=== PATIENT | female | born 1950 | race Caucasian/White ===

== ENCOUNTER 2022-02-07 08:23 | Inpatient (IN) | payer MEDICARE, MEDICAID ==
[~2022-02-07] VITALS: Ht 160 cm; Wt 61.7 kg
[2022-02-07] MEDS ORDERED: SODIUM CHLORIDE 0.9% 100 ML ONE (08:35)
[2022-02-07] MEDS ORDERED: IOHEXOL 350 MG/ML 100 ML VIAL ONE (08:35)
[2022-02-07 08:44] LABS: BASOPHILS % (AUTO) 0.6 % (0.0-2.0); EOSINOPHILS % (AUTO) 0.7 % (1.0-6.0); HEMATOCRIT 38.9 % (36-46); LYMPHOCYTES # (AUTO) 1.6 K/uL (1.0-4.8); LYMPHOCYTES % (AUTO) 15.2 % (22.0-44.0); MEAN CORPUSCULAR HGB CONC 33.5 G/dL (31.0-37.0); MEAN CORPUSCULAR VOLUME 87 fL (80-100); MONOCYTES # (AUTO) 0.5 K/uL (0.1-1.0); MONOCYTES % (AUTO) 4.7 % (2.0-9.0); NEUTROPHILS # (AUTO) 8.1 K/uL (1.8-7.7); NEUTROPHILS % (AUTO) 78.8 % (40.0-70.0); PLATELET COUNT (AUTO) 277 K/uL (150-450); RED BLOOD CELL COUNT(AUTO) 4.48 MIL/uL (4.00-5.20); RED CELL DISTRIBUTION WIDTH 13.3 % (11.5-14.5)
[2022-02-07 08:56] LABS: CALCIUM, TOTAL 8.8 mg/dL (8.8-10.5); CREATININE 1.19 mg/dL (0.60-1.30); POTASSIUM 3.4 mmol/L (3.5-5.1)
[2022-02-07 09:06] LABS: PROTHROMBIN TIME 11.1 SEC (9.4-11.6)
[2022-02-07 09:10] LABS: ALBUMIN 3.9 g/dL (3.4-5.0); BILIRUBIN,TOTAL 0.5 mg/dL (0.1-1.0); THYROID STIMULATING HORMONE 7.34 uIU/mL (0.36-3.74); TOTAL PROTEIN, SERUM 7.3 g/dL (6.4-8.2)
[2022-02-07] MEDS ORDERED: NALOXONE HCL 1 MG/ML 2 ML SYRINGE ONE (09:54)
[2022-02-07] MEDS: NiCARDipine HCL 25 MG in DEXTROSE 5%-WATER 240 ML IV PRN ×2 (09:56→09:57)
[2022-02-07 10:00] LABS: APPEARANCE,URINE CLEAR (CLEAR); BILIRUBIN,URINE NEGATIVE (NEGATIVE); GLUCOSE, URINE (UA) NEGATIVE (NEGATIVE); KETONES,URINE NEGATIVE (NEGATIVE); LEUKOCYTE ESTERASE ,URINE NEGATIVE (NEGATIVE); NITRATE,URINE NEGATIVE (NEGATIVE); OCCULT BLOOD,URINE NEGATIVE (NEGATIVE); PH,URINE 6.5 (5.0-8.0); PROTEIN,URINE NEGATIVE (NEGATIVE); SPECIFIC GRAVITIY, URINE 1.024 (1.003-1.030); UROBILINOGEN,URINE <=1.0 mg/dL (<=1.0)
[2022-02-07] MEDS ORDERED: NALOXONE HCL 1 MG/ML 2 ML SYRINGE IVP ONE (10:00)
[2022-02-07 10:11] LABS: AMPHET/METH SCREEN,URINE NEGATIVE (NEGATIVE); BARBITURATE SCREEN, URINE NEGATIVE (NEGATIVE); BENZODIAZEPINES SCREEN,URINE NEGATIVE (NEGATIVE); CANNABINOID SCREEN,URINE POSITIVE (NEGATIVE); COCAINE SCREEN,URINE NEGATIVE (NEGATIVE); METHADONE SCREEN, URINE NEGATIVE (NEGATIVE); OPIATE SCREEN,URINE NEGATIVE (NEGATIVE)
[2022-02-07 10:13] LABS: PHENCYCLIDINE SCREEN,URINE NEGATIVE (NEGATIVE)
[2022-02-07 10:38] LABS: BACTERIA,URINE None Seen /HPF (None Seen); RBC,URINE None Seen /HPF (0-2); SQUAMOUS EPITHELIAL CELL,UR Few /LPF (None Seen); WBC,URINE None Seen /HPF (0-5)
[2022-02-07] MEDS ORDERED: VITA400C79 PO (11:01)
[2022-02-07] MEDS ORDERED: METO-558 PO (11:01)
[2022-02-07] MEDS ORDERED: QUET300T2 PO (11:01)
[2022-02-07] MEDS ORDERED: LOSA-382 PO (11:01)
[2022-02-07] MEDS ORDERED: OMEG-108 PO (11:01)
[2022-02-07] MEDS ORDERED: BUSP15 PO (11:01)
[2022-02-07] MEDS ORDERED: GABA-1181 PO ×2 (11:01)
[2022-02-07] MEDS ORDERED: BECL10.62 IH (11:01)
[2022-02-07] MEDS ORDERED: TRAZ-257 PO (11:01)
[2022-02-07] MEDS ORDERED: ATOR40TA28 PO (11:01)
[2022-02-07] MEDS ORDERED: ALBU8HFA IH (11:01)
[2022-02-07] MEDS ORDERED: FLUT16H NASAL (11:01)
[2022-02-07] MEDS ORDERED: ONDA-104 PO (11:01)
[2022-02-07] MEDS ORDERED: HYDR-4527 PO (11:01)
[2022-02-07] MEDS ORDERED: BACL10TA PO (11:01)
[2022-02-07] MEDS ORDERED: SERT-158 PO (11:01)
[2022-02-07] MEDS ORDERED: CHOL500013 PO (11:01)
[2022-02-07] MEDS ORDERED: NiCARDipine HCL 25 MG in DEXTROSE 5%-WATER 240 ML IV PRN (11:09)
[2022-02-07] MEDS: ASPIRIN 81 MG CHEWABLE TABLET PO ONE ×2 (11:14→12:04)
[2022-02-07] MEDS ORDERED: IPRATROPIUM BROMIDE 0.5 MG/2.5 ML NEB SOLUTION NEB PRN (11:30)
[2022-02-07] MEDS ORDERED: 0.9% SODIUM CHLORIDE 10 ML SYRINGE IVP PRN (11:30)
[2022-02-07] MEDS ORDERED: BISACODYL 10 MG RECTAL RECTAL SUPPOSITORY PR PRN (11:30)
[2022-02-07] MEDS ORDERED: ONDANSETRON HCL 4 MG/2 ML VIAL IVP PRN (11:30)
[2022-02-07] MEDS ORDERED: ALBUTEROL SULFATE 2.5 MG/0.5 ML NEB SOLUTION NEB PRN (11:30)
[2022-02-07] MEDS: SODIUM CHLORIDE 0.9% 1,000 ML IV SCH (11:54)
[2022-02-07] MEDS: PANTOPRAZOLE SODIUM 40 MG/VIAL IVP SCH (12:04)
[2022-02-07 12:09] LABS: FREE T4 (FREE THYROXINE) 0.66 ng/dL (0.76-1.46)
[2022-02-07 12:48] LABS: ABG BASE EXCESS 2.8 mmol/L (-2.0-3.0); ABG CARBOXYHEMOGLOBIN 1.6 % (0.0-1.5); ABG METHEMOGLOBIN 0.3 % (0.0-1.5); ABG OXYGEN CONTENT 18.7 mL/dL (15.0-23.0); ABG OXYGEN SATURATION 95.7 % (95.0-98.0); ABG OXYHEMOGLOBIN 93.9 % (94.0-100.0); ABG PCO2 52 mmHg (35-45); ABG PH 7.356 (7.35-7.450); ABG TOTAL HEMOGLOBIN 14.1 G/dL (12.0-18.0); PO2, ARTERIAL BG 83.3 mmHg (75.0-83.0); SOURCE, BLOOD GAS ARTERIAL; TEMPERATURE, FAHRENHEIT, BG 97.7 FAHREN (96.0-98.6)
[2022-02-07 12:50] LABS: O2 DEVICE,BLOOD GAS CANNULA (ROOM AIR); SITE, BLOOD GAS RT RADIAL
[2022-02-07] MEDS: BECLOMETHASONE DIPR HFA 80 MCG/PUFF 10.6 GM INHALER IH SCH (20:09)
[2022-02-07 20:53] VITALS: BP 148/54
[2022-02-07] MEDS: ZOLPIDEM TARTRATE 5 MG TABLET PO PRN (22:45)
[2022-02-07] MEDS: HydrALAZINE HCL 20 MG/ML VIAL IVP PRN (23:44)
[2022-02-08 00:03] VITALS: BP 171/80
[2022-02-08] MEDS: ACETAMINOPHEN 325 MG TABLET PO PRN ×2 (01:15→16:39)
[2022-02-08 04:34] VITALS: BP 155/79
[2022-02-08] MEDS: SODIUM CHLORIDE 0.9% 1,000 ML IV SCH ×2 (04:52→16:06)
[2022-02-08 08:20] LABS: BASOPHILS % (AUTO) 0.5 % (0.0-2.0); EOSINOPHILS % (AUTO) 1.7 % (1.0-6.0); HEMATOCRIT 38.6 % (36-46); HEMOGLOBIN 12.9 g/dL (12.0-16.0); LYMPHOCYTES # (AUTO) 2.2 K/uL (1.0-4.8); MEAN CORPUSCULAR HGB CONC 33.4 G/dL (31.0-37.0); MEAN CORPUSCULAR VOLUME 87 fL (80-100); MONOCYTES # (AUTO) 0.6 K/uL (0.1-1.0); MONOCYTES % (AUTO) 6.7 % (2.0-9.0); NEUTROPHILS # (AUTO) 5.3 K/uL (1.8-7.7); NEUTROPHILS % (AUTO) 64.1 % (40.0-70.0); PLATELET COUNT (AUTO) 263 K/uL (150-450); RED BLOOD CELL COUNT(AUTO) 4.44 MIL/uL (4.00-5.20); RED CELL DISTRIBUTION WIDTH 13.5 % (11.5-14.5)
[2022-02-08 08:47] LABS: ALANINE AMINOTRANSFERASE 19 U/L (12-78); ALBUMIN 3.3 g/dL (3.4-5.0); ALKALINE PHOSPHATASE 88 U/L (46-116); ANION GAP 7 mmol/L (8-16); ASPARTATE AMINOTRANSFERASE 18 U/L (15-37); BILIRUBIN,TOTAL 0.5 mg/dL (0.1-1.0); CALCIUM, TOTAL 8.3 mg/dL (8.8-10.5); CARBON DIOXIDE 29 mmol/L (22-29); CHLORIDE 101 mmol/L (98-107); CHOL/HDL RATIO 2.4 (3.9-5.7); CHOLESTEROL 158 mg/dL (131-200); CREATININE 0.77 mg/dL (0.60-1.30); GLUCOSE,RANDOM 87 mg/dL (70-110); HDL CHOLESTEROL 66 mg/dL (40-60); LDL CHOL (CALC.) 71 mg/dL (0-130); POTASSIUM 3.2 mmol/L (3.5-5.1); SODIUM SERUM 137 mmol/L (136-145); TOTAL PROTEIN, SERUM 6.7 g/dL (6.4-8.2); TRIGLYCERIDES 103 mg/dL (15-150); UREA NITROGEN, BLOOD 12 mg/dL (7-18)
[2022-02-08 08:48] LABS: GLOMERULAR FILTR. RATE CALC > 60 mL/min (>60)
[2022-02-08 08:53] VITALS: BP 163/93
[2022-02-08] MEDS ORDERED: METOPROLOL SUCCINATE 50 MG ER TABLET PO SCH (09:00)
[2022-02-08] MEDS ORDERED: LEVOTHYROXINE SODIUM 100 MCG VIAL IVP SCH (09:00)
[2022-02-08] MEDS: LOSARTAN POTASSIUM 50 MG TABLET PO SCH (09:00)
[2022-02-08] MEDS: ASPIRIN 300 MG RECTAL SUPPOSITORY PR SCH (09:01)
[2022-02-08] MEDS: PANTOPRAZOLE SODIUM 40 MG/VIAL IVP SCH (09:01)
[2022-02-08] MEDS: FLUTICASONE PROPIONATE 50 MCG/SPRAY 16 GM NASAL SPRAY NASAL SCH (13:53)
[2022-02-08] MEDS: BECLOMETHASONE DIPR HFA 80 MCG/PUFF 10.6 GM INHALER IH SCH ×2 (13:53→21:40)
[2022-02-08] MEDS: AmLODIPine BESYLATE 10 MG TABLET PO SCH (13:53)
[2022-02-08 14:05] VITALS: BP 178/99
[2022-02-08] MEDS: IPRATROPIUM BROMIDE 0.5 MG/2.5 ML NEB SOLUTION NEB SCH ×2 (15:10→20:28)
[2022-02-08] MEDS: ALBUTEROL SULFATE 2.5 MG/0.5 ML NEB SOLUTION NEB SCH ×2 (15:10→20:28)
[2022-02-08] MEDS: HydrALAZINE HCL 20 MG/ML VIAL IVP PRN (16:40)
[2022-02-08 20:00] VITALS: BP 176/85
[2022-02-08] MEDS: ZOLPIDEM TARTRATE 5 MG TABLET PO PRN (21:40)
[2022-02-08] MEDS: CloNIDine HCL 0.1 MG TABLET PO PRN (21:40)
[2022-02-09] VITALS (7 sets, daily range): BP systolic 129–172; BP diastolic 71–98
[2022-02-09] MEDS: ALBUTEROL SULFATE 2.5 MG/0.5 ML NEB SOLUTION NEB SCH ×4 (02:00→19:55)
[2022-02-09] MEDS: IPRATROPIUM BROMIDE 0.5 MG/2.5 ML NEB SOLUTION NEB SCH ×4 (02:00→19:55)
[2022-02-09] MEDS: SODIUM CHLORIDE 0.9% 1,000 ML IV SCH (06:46)
[2022-02-09] MEDS: LEVOTHYROXINE SODIUM 25 MCG TABLET PO SCH (06:46)
[2022-02-09 07:47] LABS: BASOPHILS % (AUTO) 0.4 % (0.0-2.0); EOSINOPHILS % (AUTO) 0.4 % (1.0-6.0); HEMATOCRIT 41.1 % (36-46); HEMOGLOBIN 13.8 g/dL (12.0-16.0); LYMPHOCYTES # (AUTO) 1.9 K/uL (1.0-4.8); LYMPHOCYTES % (AUTO) 15.4 % (22.0-44.0); MEAN CORPUSCULAR HGB CONC 33.6 G/dL (31.0-37.0); MEAN CORPUSCULAR VOLUME 86 fL (80-100); MONOCYTES # (AUTO) 0.7 K/uL (0.1-1.0); MONOCYTES % (AUTO) 5.5 % (2.0-9.0); NEUTROPHILS # (AUTO) 9.9 K/uL (1.8-7.7); NEUTROPHILS % (AUTO) 78.3 % (40.0-70.0); PLATELET COUNT (AUTO) 288 K/uL (150-450); RED BLOOD CELL COUNT(AUTO) 4.76 MIL/uL (4.00-5.20); RED CELL DISTRIBUTION WIDTH 13.5 % (11.5-14.5)
[2022-02-09 08:05] LABS: ALANINE AMINOTRANSFERASE 19 U/L (12-78); ALBUMIN 3.5 g/dL (3.4-5.0); ALKALINE PHOSPHATASE 95 U/L (46-116); ANION GAP 7 mmol/L (8-16); ASPARTATE AMINOTRANSFERASE 19 U/L (15-37); BILIRUBIN,TOTAL 0.5 mg/dL (0.1-1.0); CALCIUM, TOTAL 8.9 mg/dL (8.8-10.5); CARBON DIOXIDE 30 mmol/L (22-29); CHLORIDE 98 mmol/L (98-107); CREATININE 0.74 mg/dL (0.60-1.30); GLUCOSE,RANDOM 93 mg/dL (70-110); POTASSIUM 3.4 mmol/L (3.5-5.1); SODIUM SERUM 135 mmol/L (136-145); TOTAL PROTEIN, SERUM 7.2 g/dL (6.4-8.2); UREA NITROGEN, BLOOD 12 mg/dL (7-18)
[2022-02-09 08:08] LABS: GLOMERULAR FILTR. RATE CALC > 60 mL/min (>60)
[2022-02-09] MEDS: LOSARTAN POTASSIUM 50 MG TABLET PO SCH (08:43)
[2022-02-09] MEDS: ASPIRIN 300 MG RECTAL SUPPOSITORY PR SCH (08:43)
[2022-02-09] MEDS: AmLODIPine BESYLATE 10 MG TABLET PO SCH (08:43)
[2022-02-09] MEDS: METOPROLOL SUCCINATE 50 MG ER TABLET PO SCH (08:43)
[2022-02-09] MEDS: BECLOMETHASONE DIPR HFA 80 MCG/PUFF 10.6 GM INHALER IH SCH ×2 (08:44→19:57)
[2022-02-09] MEDS: PANTOPRAZOLE SODIUM 40 MG/VIAL IVP SCH (08:44)
[2022-02-09] MEDS: FLUTICASONE PROPIONATE 50 MCG/SPRAY 16 GM NASAL SPRAY NASAL SCH (08:44)
[2022-02-09] MEDS: HydrALAZINE HCL 20 MG/ML VIAL IVP PRN (15:26)
[2022-02-09 15:58] LABS: APPEARANCE,URINE CLEAR (CLEAR); BILIRUBIN,URINE NEGATIVE (NEGATIVE); GLUCOSE, URINE (UA) NEGATIVE (NEGATIVE); KETONES,URINE TRACE mg/dL (NEGATIVE); LEUKOCYTE ESTERASE ,URINE NEGATIVE (NEGATIVE); NITRATE,URINE NEGATIVE (NEGATIVE); OCCULT BLOOD,URINE TRACE (NEGATIVE); PH,URINE 6.5 (5.0-8.0); PROTEIN,URINE 30-70 mg/dL (NEGATIVE); SPECIFIC GRAVITIY, URINE 1.017 (1.003-1.030); UROBILINOGEN,URINE <=1.0 mg/dL (<=1.0)
[2022-02-09 16:06] LABS: BACTERIA,URINE Rare /HPF (None Seen); SQUAMOUS EPITHELIAL CELL,UR Few /LPF (None Seen); WBC,URINE 0-2 /HPF (0-5)
[2022-02-10] VITALS (8 sets, daily range): BP systolic 146–184; BP diastolic 74–100
[2022-02-10] MEDS: ALBUTEROL SULFATE 2.5 MG/0.5 ML NEB SOLUTION NEB SCH ×4 (02:00→19:32)
[2022-02-10] MEDS: IPRATROPIUM BROMIDE 0.5 MG/2.5 ML NEB SOLUTION NEB SCH ×4 (02:00→19:32)
[2022-02-10] MEDS: LEVOTHYROXINE SODIUM 25 MCG TABLET PO SCH (05:51)
[2022-02-10] MEDS: SODIUM CHLORIDE 0.9% 1,000 ML IV SCH ×2 (05:51→11:20)
[2022-02-10] MEDS: CloNIDine HCL 0.1 MG TABLET PO PRN (05:52)
[2022-02-10 06:21] LABS: EOSINOPHILS % (AUTO) 0.5 % (1.0-6.0); HEMATOCRIT 40.7 % (36-46); HEMOGLOBIN 13.6 g/dL (12.0-16.0); LYMPHOCYTES # (AUTO) 1.8 K/uL (1.0-4.8); LYMPHOCYTES % (AUTO) 17.3 % (22.0-44.0); MEAN CORPUSCULAR HEMOGLOBIN 28.9 pg (26.0-34.0); MEAN CORPUSCULAR HGB CONC 33.4 G/dL (31.0-37.0); MEAN CORPUSCULAR VOLUME 87 fL (80-100); MONOCYTES # (AUTO) 0.6 K/uL (0.1-1.0); MONOCYTES % (AUTO) 6.1 % (2.0-9.0); NEUTROPHILS # (AUTO) 7.7 K/uL (1.8-7.7); NEUTROPHILS % (AUTO) 75.1 % (40.0-70.0); PLATELET COUNT (AUTO) 282 K/uL (150-450); RED CELL DISTRIBUTION WIDTH 13.5 % (11.5-14.5)
[2022-02-10 06:43] LABS: ALANINE AMINOTRANSFERASE 23 U/L (12-78); ALBUMIN 3.7 g/dL (3.4-5.0); ALKALINE PHOSPHATASE 95 U/L (46-116); ANION GAP 8 mmol/L (8-16); ASPARTATE AMINOTRANSFERASE 24 U/L (15-37); BILIRUBIN,TOTAL 0.4 mg/dL (0.1-1.0); CALCIUM, TOTAL 8.5 mg/dL (8.8-10.5); CARBON DIOXIDE 30 mmol/L (22-29); CHLORIDE 99 mmol/L (98-107); CREATININE 0.68 mg/dL (0.60-1.30); GLUCOSE,RANDOM 118 mg/dL (70-110); POTASSIUM 3.4 mmol/L (3.5-5.1); SODIUM SERUM 137 mmol/L (136-145); TOTAL PROTEIN, SERUM 7.4 g/dL (6.4-8.2); UREA NITROGEN, BLOOD 13 mg/dL (7-18)
[2022-02-10 06:47] LABS: GLOMERULAR FILTR. RATE CALC > 60 mL/min (>60)
[2022-02-10] MEDS ORDERED: POTASSIUM CHLORIDE 20 MEQ ER TABLET PO ONE (08:15)
[2022-02-10] MEDS ORDERED: HydrALAZINE HCL 50 MG TABLET PO SCH (08:15)
[2022-02-10] MEDS: ASPIRIN 81 MG DR TABLET PO SCH (08:41)
[2022-02-10] MEDS: PANTOPRAZOLE SODIUM 40 MG/VIAL IVP SCH (08:41)
[2022-02-10] MEDS: AmLODIPine BESYLATE 10 MG TABLET PO SCH (08:41)
[2022-02-10] MEDS: METOPROLOL SUCCINATE 50 MG ER TABLET PO SCH (08:41)
[2022-02-10] MEDS: LOSARTAN POTASSIUM 50 MG TABLET PO SCH (08:41)
[2022-02-10] MEDS: BECLOMETHASONE DIPR HFA 80 MCG/PUFF 10.6 GM INHALER IH SCH ×2 (08:43→20:13)
[2022-02-10] MEDS: FLUTICASONE PROPIONATE 50 MCG/SPRAY 16 GM NASAL SPRAY NASAL SCH (08:43)
[2022-02-10] MEDS ORDERED: HydrALAZINE HCL 50 MG TABLET PO ONE (11:15)
[2022-02-10] MEDS ORDERED: NIFEdipine 30 MG ER TABLET PO ONE (12:15)
[2022-02-10] MEDS: NICOTINE 14 MG/24 HOUR PATCH TD SCH (13:26)
[2022-02-10] MEDS: ACETAMINOPHEN 325 MG TABLET PO PRN (13:28)
[2022-02-10] MEDS: HydrALAZINE HCL 50 MG TABLET PO SCH ×2 (16:51→23:45)
[2022-02-10] MEDS: NIFEdipine 30 MG ER TABLET PO SCH (20:13)
[2022-02-10] MEDS: ZOLPIDEM TARTRATE 5 MG TABLET PO PRN (20:18)
[2022-02-11 00:05] VITALS: BP 144/92
[2022-02-11] MEDS: ALBUTEROL SULFATE 2.5 MG/0.5 ML NEB SOLUTION NEB SCH ×4 (02:00→13:39)
[2022-02-11] MEDS: IPRATROPIUM BROMIDE 0.5 MG/2.5 ML NEB SOLUTION NEB SCH ×4 (02:00→13:39)
[2022-02-11 05:09] VITALS: BP 139/89
[2022-02-11] MEDS: LEVOTHYROXINE SODIUM 25 MCG TABLET PO SCH (05:26)
[2022-02-11] MEDS: SODIUM CHLORIDE 0.9% 1,000 ML IV SCH ×2 (05:27→15:36)
[2022-02-11 07:38] VITALS: BP 144/80
[2022-02-11] MEDS: BECLOMETHASONE DIPR HFA 80 MCG/PUFF 10.6 GM INHALER IH SCH (09:44)
[2022-02-11] MEDS: FLUTICASONE PROPIONATE 50 MCG/SPRAY 16 GM NASAL SPRAY NASAL SCH (09:46)
[2022-02-11] MEDS: PANTOPRAZOLE SODIUM 40 MG/VIAL IVP SCH (09:46)
[2022-02-11] MEDS: HydrALAZINE HCL 50 MG TABLET PO SCH ×2 (09:47→15:24)
[2022-02-11] MEDS: NICOTINE 14 MG/24 HOUR PATCH TD SCH (09:47)
[2022-02-11] MEDS: LOSARTAN POTASSIUM 50 MG TABLET PO SCH (09:48)
[2022-02-11] MEDS: METOPROLOL SUCCINATE 50 MG ER TABLET PO SCH (09:48)
[2022-02-11] MEDS: NIFEdipine 30 MG ER TABLET PO SCH (09:48)
[2022-02-11] MEDS: ASPIRIN 81 MG DR TABLET PO SCH (09:49)
[2022-02-11] MEDS: ACETAMINOPHEN 325 MG TABLET PO PRN (09:55)
[2022-02-11 11:13] VITALS: BP 155/75
[2022-02-11] MEDS ORDERED: POLY17PO47 PO (15:27)
[2022-02-11] MEDS ORDERED: ASPI-1450 PO (15:27)
[2022-02-11] MEDS ORDERED: HYDR50TA36 PO (15:28)
[2022-02-11] MEDS ORDERED: LOSA-382 PO (15:29)
[2022-02-11] MEDS ORDERED: METO-558 PO (15:29)
[2022-02-11] MEDS ORDERED: NIFE-46 PO (15:32)
[2022-02-11 15:57] VITALS: BP 145/91
== END 2022-02-11 17:40 | disposition home or self-care (01) | DRG 92 ==
LOC: EMS 08:26 → 5N 19:21
PROVIDERS: ADMIT Internal Medicine; ATTEND Internal Medicine
DX: G92.8 Other toxic encephalopathy (principal); R65.10 Systemic inflammatory response syndrome (SIRS) of non-infectious origin without acute organ dysfunction; I45.2 Bifascicular block; I16.1 Hypertensive emergency; E03.9 Hypothyroidism, unspecified; I11.9 Hypertensive heart disease without heart failure; F99 Mental disorder, not otherwise specified; J43.9 Emphysema, unspecified; F12.90 Cannabis use, unspecified, uncomplicated; G25.0 Essential tremor; R00.1 Bradycardia, unspecified; G62.9 Polyneuropathy, unspecified; R47.81 Slurred speech; E87.6 Hypokalemia; Z88.2 Allergy status to sulfonamides; Z79.899 Other long term (current) drug therapy
CPT/HCPCS: 36600; 51702; 70496; 70498; 70551; 71045; 71046; 80053; 80061; 81001; 82140; 82805; 82948; 83036; 83605; 83880; 84145; 84439; 84443; 84484; 85025; 85610; 85730; 86850; 86900; 86901; 87040; 92610; 93005; 93306; 93880; 94640; 97116; 97161; 97166; 97530; 97535; 99291; C9113; G0480; J0360; J2310; J3490; J3535; J7030; J7050; J7060; Q9967; 36415-L1; 36415-TC; 70450; 70450-TC; J7613

== ENCOUNTER 2022-02-16 02:38 | Inpatient (IN) | payer MEDICARE, MEDICAID ==
[~2022-02-16] VITALS: Ht 160 cm; Wt 63.5 kg
[~2022-02-16 02:38] MED LIST: ALBU8HFA IH; ASPI-1450 PO; ATOR40TA28 PO; BACL10TA PO; BECL10.62 IH; BUSP15 PO; CHOL500013 PO; FLUT16H NASAL; GABA-1181 PO; HYDR-4527 PO; HYDR50TA36 PO; LOSA-382 PO; METO-558 PO; NIFE-46 PO; OMEG-108 PO; ONDA-104 PO; POLY17PO47 PO; SERT-158 PO; VITA400C79 PO
[2022-02-16] MEDS ORDERED: SODIUM CHLORIDE 0.9% 500 ML IV ONE (03:15)
[2022-02-16 03:16] LABS: GLUCOMETER DEV NAME(LOC) ERT.5; GLUCOSE,POINT OF CARE 137 MG/DL (70-110)
[2022-02-16 03:16] LABS: BASOPHILS % (AUTO) 0.7 % (0.0-2.0); EOSINOPHILS % (AUTO) 1.9 % (1.0-6.0); HEMATOCRIT 38.4 % (36-46); HEMOGLOBIN 12.8 g/dL (12.0-16.0); LYMPHOCYTES # (AUTO) 2.2 K/uL (1.0-4.8); LYMPHOCYTES % (AUTO) 23.1 % (22.0-44.0); MEAN CORPUSCULAR HEMOGLOBIN 28.9 pg (26.0-34.0); MEAN CORPUSCULAR HGB CONC 33.4 G/dL (31.0-37.0); MEAN CORPUSCULAR VOLUME 87 fL (80-100); MONOCYTES # (AUTO) 0.5 K/uL (0.1-1.0); MONOCYTES % (AUTO) 5.5 % (2.0-9.0); NEUTROPHILS # (AUTO) 6.5 K/uL (1.8-7.7); NEUTROPHILS % (AUTO) 68.8 % (40.0-70.0); PLATELET COUNT (AUTO) 298 K/uL (150-450); RED BLOOD CELL COUNT(AUTO) 4.44 MIL/uL (4.00-5.20)
[2022-02-16 03:36] LABS: AMMONIA < 10 umol/L (11-32); LACTIC ACID 0.6 mmol/L (0.4-2.0)
[2022-02-16 03:42] LABS: PROTHROMBIN TIME 10.9 SEC (9.4-11.6)
[2022-02-16 03:55] LABS: CALCIUM, TOTAL 8.8 mg/dL (8.8-10.5); CREATININE 0.99 mg/dL (0.60-1.30); POTASSIUM 3.3 mmol/L (3.5-5.1)
[2022-02-16 04:00] LABS: APPEARANCE,URINE CLEAR (CLEAR); BILIRUBIN,URINE NEGATIVE (NEGATIVE); GLUCOSE, URINE (UA) NEGATIVE (NEGATIVE); KETONES,URINE NEGATIVE (NEGATIVE); LEUKOCYTE ESTERASE ,URINE NEGATIVE (NEGATIVE); NITRATE,URINE NEGATIVE (NEGATIVE); OCCULT BLOOD,URINE NEGATIVE (NEGATIVE); PROTEIN,URINE NEGATIVE (NEGATIVE); SPECIFIC GRAVITIY, URINE 1.008 (1.003-1.030); UROBILINOGEN,URINE <=1.0 mg/dL (<=1.0)
[2022-02-16 04:05] LABS: AMPHET/METH SCREEN,URINE NEGATIVE (NEGATIVE); BARBITURATE SCREEN, URINE NEGATIVE (NEGATIVE); BENZODIAZEPINES SCREEN,URINE NEGATIVE (NEGATIVE); CANNABINOID SCREEN,URINE POSITIVE (NEGATIVE); COCAINE SCREEN,URINE NEGATIVE (NEGATIVE); METHADONE SCREEN, URINE NEGATIVE (NEGATIVE); OPIATE SCREEN,URINE NEGATIVE (NEGATIVE)
[2022-02-16 04:06] LABS: PHENCYCLIDINE SCREEN,URINE NEGATIVE (NEGATIVE)
[2022-02-16 04:19] LABS: ALBUMIN 3.5 g/dL (3.4-5.0); BILIRUBIN,TOTAL 0.3 mg/dL (0.1-1.0); TOTAL PROTEIN, SERUM 6.7 g/dL (6.4-8.2)
[2022-02-16 06:29] LABS: COVID AG,FIA SOURCE NASAL SWAB
[2022-02-16] MEDS ORDERED: POTASSIUM CHL 10 MEQ/WATER 50 ML IV PRN (08:30)
[2022-02-16] MEDS ORDERED: ACETAMINOPHEN 325 MG TABLET PO PRN (08:30)
[2022-02-16] MEDS ORDERED: POTASSIUM CHLORIDE 20 MEQ ER TABLET PO PRN (08:30)
[2022-02-16] MEDS: FAMOTIDINE 20 MG TABLET PO SCH (09:00)
[2022-02-16] MEDS: DOCUSATE SODIUM 100 MG CAPSULE PO SCH ×2 (09:00→20:10)
[2022-02-16] MEDS: ATORVASTATIN CALCIUM 20 MG TABLET PO SCH (09:00)
[2022-02-16] MEDS: ASPIRIN 81 MG CHEWABLE TABLET PO SCH (09:00)
[2022-02-16] MEDS: HEPARIN SODIUM,PORCINE 5,000 UNITS/ML VIAL SQ SCH ×2 (16:06→23:38)
[2022-02-16] MEDS ORDERED: ASPI-1444 PO (18:26)
[2022-02-16] MEDS ORDERED: QUET300T19 PO (18:26)
[2022-02-16] MEDS ORDERED: HYDR-4584 PO (18:26)
[2022-02-16] MEDS ORDERED: FISH1 PO (18:26)
[2022-02-16] MEDS ORDERED: LEVO125T95 PO (18:26)
[2022-02-16] MEDS ORDERED: NIFE30TA5 PO (18:26)
[2022-02-16] MEDS ORDERED: NICOTINE 14 MG/24 HOUR PATCH TD ONE (18:30)
[2022-02-16 21:11] VITALS: BP 151/96
[2022-02-16] MEDS ORDERED: ASPIRIN 81 MG CHEWABLE TABLET PO ONE (21:45)
[2022-02-16] MEDS: ZOLPIDEM TARTRATE 5 MG TABLET PO PRN (21:45)
[2022-02-16] MEDS ORDERED: MORPHINE SULFATE 2 MG/ML SYRINGE IVP PRN (22:45)
[2022-02-16 23:30] VITALS: BP 159/92
[2022-02-17] VITALS (7 sets, daily range): BP systolic 110–173; BP diastolic 45–92
[2022-02-17] MEDS: FAMOTIDINE 20 MG TABLET PO SCH (08:23)
[2022-02-17] MEDS: ASPIRIN 81 MG CHEWABLE TABLET PO SCH (08:23)
[2022-02-17] MEDS: DOCUSATE SODIUM 100 MG CAPSULE PO SCH ×2 (08:23→20:17)
[2022-02-17] MEDS: ATORVASTATIN CALCIUM 20 MG TABLET PO SCH (08:23)
[2022-02-17] MEDS: HEPARIN SODIUM,PORCINE 5,000 UNITS/ML VIAL SQ SCH ×3 (08:23→23:38)
[2022-02-17] MEDS: ONDANSETRON HCL 4 MG/2 ML VIAL IM PRN (08:30)
[2022-02-17] MEDS ORDERED: BISACODYL 5 MG EC TABLET PO PRN (09:00)
[2022-02-17] MEDS ORDERED: AmLODIPine BESYLATE 5 MG TABLET PO SCH (09:00)
[2022-02-17] MEDS ORDERED: HydrOXYzine PAMOATE 25 MG CAPSULE PO PRN (14:00)
[2022-02-17] MEDS: GABAPENTIN 100 MG CAPSULE PO SCH ×2 (16:04→20:17)
[2022-02-17] MEDS ORDERED: CloNIDine HCL 0.1 MG TABLET PO PRN (20:15)
[2022-02-17] MEDS ORDERED: MAGNESIUM HYDROXIDE SUSPENSION 30 ML UDCUP PO PRN (20:15)
[2022-02-17] MEDS ORDERED: BISACODYL 10 MG RECTAL RECTAL SUPPOSITORY PR PRN (20:15)
[2022-02-17] MEDS: ZOLPIDEM TARTRATE 5 MG TABLET PO PRN (20:27)
[2022-02-17] MEDS ORDERED: LURASIDONE HCL 20 MG TABLET PO SCH (21:00)
[2022-02-18 04:42] VITALS: BP 142/97
[2022-02-18] MEDS ORDERED: LEVOTHYROXINE SODIUM 100 MCG TABLET PO SCH (06:30)
[2022-02-18 07:17] VITALS: BP 119/70
[2022-02-18] MEDS ORDERED: AmLODIPine BESYLATE 10 MG TABLET PO SCH (09:00)
[2022-02-18] MEDS: ASPIRIN 81 MG CHEWABLE TABLET PO SCH (09:16)
[2022-02-18] MEDS: DOCUSATE SODIUM 100 MG CAPSULE PO SCH (09:17)
[2022-02-18] MEDS: FAMOTIDINE 20 MG TABLET PO SCH (09:17)
[2022-02-18] MEDS: HEPARIN SODIUM,PORCINE 5,000 UNITS/ML VIAL SQ SCH (09:17)
[2022-02-18] MEDS: ATORVASTATIN CALCIUM 20 MG TABLET PO SCH (09:17)
[2022-02-18] MEDS: GABAPENTIN 100 MG CAPSULE PO SCH (09:17)
[2022-02-18 11:00] VITALS: BP 117/76
[2022-02-18] MEDS: ONDANSETRON HCL 4 MG/2 ML VIAL IM PRN (12:36)
[2022-02-18 16:16] VITALS: BP 136/87
== END 2022-02-18 17:30 | disposition home or self-care (01) | DRG 71 ==
LOC: EMS 02:41 → 5S 19:43
PROVIDERS: ADMIT Internal Medicine; ATTEND Internal Medicine
DX: G93.40 Encephalopathy, unspecified (principal); F33.3 Major depressive disorder, recurrent, severe with psychotic symptoms; Z20.822 Contact with and (suspected) exposure to COVID-19; E03.9 Hypothyroidism, unspecified; E78.00 Pure hypercholesterolemia, unspecified; R47.81 Slurred speech; E87.6 Hypokalemia; F12.90 Cannabis use, unspecified, uncomplicated; R00.1 Bradycardia, unspecified; T50.915A Adverse effect of multiple unspecified drugs, medicaments and biological substances, initial encounter; I11.9 Hypertensive heart disease without heart failure; J44.9 Chronic obstructive pulmonary disease, unspecified; Z79.899 Other long term (current) drug therapy; Z88.2 Allergy status to sulfonamides; Z79.82 Long term (current) use of aspirin; Y92.89 Other specified places as the place of occurrence of the external cause
CPT/HCPCS: 51702; 70450; 71045; 80053; 81003; 82140; 82550; 82962; 83605; 84132; 84484; 85025; 85610; 85730; 87081; 93005; 97161; 99285; J1644; J2405; J7040; Q9967; 36415-L1; 36415-TC

== ENCOUNTER 2022-08-07 16:04 | Emergency (ER) | payer MEDICARE, MEDICAID ==
[~2022-08-07] VITALS: Ht 149.9 cm; Wt 65.0 kg
[~2022-08-07 16:04] MED LIST changes: +ASPI-1444 PO; -ASPI-1450 PO; -BACL10TA PO; -BECL10.62 IH; -BUSP15 PO; -FLUT16H NASAL; -HYDR-4527 PO; -HYDR50TA36 PO; +LEVO125T95 PO; -METO-558 PO; -NIFE-46 PO; -OMEG-108 PO; -ONDA-104 PO; -POLY17PO47 PO; -SERT-158 PO; -VITA400C79 PO
[2022-08-07 16:26] LABS: BASOPHILS % (AUTO) 0.6 % (0.0-2.0); EOSINOPHILS % (AUTO) 1.2 % (1.0-6.0); HEMATOCRIT 43.2 % (36-46); HEMOGLOBIN 14.6 g/dL (12.0-16.0); LYMPHOCYTES # (AUTO) 2.4 K/uL (1.0-4.8); LYMPHOCYTES % (AUTO) 26.6 % (22.0-44.0); MEAN CORPUSCULAR HEMOGLOBIN 29.8 pg (26.0-34.0); MEAN CORPUSCULAR HGB CONC 33.8 G/dL (31.0-37.0); MEAN CORPUSCULAR VOLUME 88 fL (80-100); MONOCYTES # (AUTO) 0.6 K/uL (0.1-1.0); MONOCYTES % (AUTO) 6.4 % (2.0-9.0); NEUTROPHILS # (AUTO) 5.9 K/uL (1.8-7.7); NEUTROPHILS % (AUTO) 65.2 % (40.0-70.0); PLATELET COUNT (AUTO) 262 K/uL (150-450); RED CELL DISTRIBUTION WIDTH 14.5 % (11.5-14.5)
[2022-08-07 16:30] LABS: COVID AG,FIA SOURCE NASOPHARYNGEAL
[2022-08-07 16:36] LABS: CALCIUM, TOTAL 9.2 mg/dL (8.8-10.5); CREATININE 1.04 mg/dL (0.60-1.30); POTASSIUM 3.3 mmol/L (3.5-5.1)
[2022-08-07] MEDS ORDERED: FAMOTIDINE 10 MG/ML 2 ML VIAL IVP ONE (16:45)
[2022-08-07 16:50] LABS: ALBUMIN 3.9 g/dL (3.4-5.0); BILIRUBIN,TOTAL 0.5 mg/dL (0.1-1.0); THYROID STIMULATING HORMONE 6.45 uIU/mL (0.36-3.74); TOTAL PROTEIN, SERUM 7.1 g/dL (6.4-8.2)
[2022-08-07] MEDS ORDERED: ONDANSETRON HCL 4 MG/2 ML VIAL IVP ONE (17:00)
[2022-08-07 17:04] LABS: APPEARANCE,URINE CLEAR (CLEAR); BILIRUBIN,URINE NEGATIVE (NEGATIVE); GLUCOSE, URINE (UA) NEGATIVE (NEGATIVE); LEUKOCYTE ESTERASE ,URINE MODERATE (NEGATIVE); NITRATE,URINE NEGATIVE (NEGATIVE); OCCULT BLOOD,URINE NEGATIVE (NEGATIVE); PH,URINE 6.5 (5.0-8.0); PROTEIN,URINE NEGATIVE (NEGATIVE); UROBILINOGEN,URINE <=1.0 mg/dL (<=1.0)
[2022-08-07 17:30] LABS: SQUAMOUS EPITHELIAL CELL,UR Few /LPF (None Seen)
[2022-08-07 17:32] LABS: BACTERIA,URINE None Seen /HPF (None Seen); RBC,URINE None Seen /HPF (0-2)
[2022-08-07 17:45] LABS: FREE T4 (FREE THYROXINE) 1.23 ng/dL (0.76-1.46)
[2022-08-07] MEDS ORDERED: FAMO20 PO (18:20)
[2022-08-07 18:27] VITALS: BP 152/83
[2022-08-07] MEDS ORDERED: MAG HYDROX/AL HYDROX/SIMETH 30 ML SUSP UDCUP PO ONE (18:30)
== END 2022-08-07 19:39 | disposition home or self-care (01) ==
LOC: EMS 16:04
DX: R10.13 Epigastric pain (principal); Z20.822 Contact with and (suspected) exposure to COVID-19; E03.9 Hypothyroidism, unspecified; F31.9 Bipolar disorder, unspecified; I10 Essential (primary) hypertension; G93.41 Metabolic encephalopathy; Z88.2 Allergy status to sulfonamides; Z87.11 Personal history of peptic ulcer disease
CPT/HCPCS: 99284; 74176; 96374; 96375; 87426; 80053; 81001; 83690; 84439; 84443; 84484; 85025; 36415; J3490; J2405

== ENCOUNTER 2022-08-13 10:48 | Emergency (ER) | payer MEDICARE, MEDICAID ==
[~2022-08-13] VITALS: Ht 162.6 cm; Wt 61.3 kg
[~2022-08-13 10:48] MED LIST changes: +FAMO20 PO
[2022-08-13 12:26] LABS: BASOPHILS % (AUTO) 0.9 % (0.0-2.0); EOSINOPHILS % (AUTO) 2.5 % (1.0-6.0); HEMATOCRIT 45.4 % (36-46); HEMOGLOBIN 15.1 g/dL (12.0-16.0); LYMPHOCYTES # (AUTO) 2.9 K/uL (1.0-4.8); LYMPHOCYTES % (AUTO) 31.3 % (22.0-44.0); MEAN CORPUSCULAR HEMOGLOBIN 29.8 pg (26.0-34.0); MEAN CORPUSCULAR HGB CONC 33.2 G/dL (31.0-37.0); MEAN CORPUSCULAR VOLUME 90 fL (80-100); MONOCYTES # (AUTO) 0.6 K/uL (0.1-1.0); MONOCYTES % (AUTO) 6.9 % (2.0-9.0); NEUTROPHILS # (AUTO) 5.3 K/uL (1.8-7.7); NEUTROPHILS % (AUTO) 58.4 % (40.0-70.0); PLATELET COUNT (AUTO) 259 K/uL (150-450); RED BLOOD CELL COUNT(AUTO) 5.07 MIL/uL (4.00-5.20); RED CELL DISTRIBUTION WIDTH 14.6 % (11.5-14.5)
[2022-08-13 12:37] LABS: CALCIUM, TOTAL 9.3 mg/dL (8.8-10.5); CREATININE 1.09 mg/dL (0.60-1.30); POTASSIUM 3.5 mmol/L (3.5-5.1)
[2022-08-13 12:43] LABS: ALBUMIN 3.9 g/dL (3.4-5.0); BILIRUBIN,TOTAL 0.6 mg/dL (0.1-1.0); TOTAL PROTEIN, SERUM 7.2 g/dL (6.4-8.2)
[2022-08-13] MEDS ORDERED: MAG HYDROX/AL HYDROX/SIMETH ES 30 ML SUSPENSION UDCUP PO ONE (12:45)
[2022-08-13] MEDS ORDERED: FAMOTIDINE 20 MG TABLET PO ONE (12:45)
[2022-08-13] MEDS ORDERED: ACETAMINOPHEN 500 MG TABLET PO ONE (12:45)
[2022-08-13] MEDS ORDERED: FAMO20 PO (12:59)
[2022-08-13] MEDS ORDERED: MAG30ORA11 PO (12:59)
[2022-08-13 13:36] VITALS: BP 132/77
== END 2022-08-13 13:57 | disposition home or self-care (01) ==
LOC: EMS 10:53
DX: K29.70 Gastritis, unspecified, without bleeding (principal); R10.13 Epigastric pain; F31.9 Bipolar disorder, unspecified; G93.40 Encephalopathy, unspecified; E03.9 Hypothyroidism, unspecified; I11.9 Hypertensive heart disease without heart failure; Z88.2 Allergy status to sulfonamides
CPT/HCPCS: 80053; 83690; 84484; 85025; 93005; 99284

== ENCOUNTER 2022-09-20 07:39 | Emergency (ER) | payer MEDICARE, MEDICAID ==
[~2022-09-20] VITALS: Ht 149.9 cm; Wt 59.1 kg
[~2022-09-20 07:39] MED LIST changes: +MAG30ORA11 PO
[2022-09-20] MEDS ORDERED: ACETAMINOPHEN 325 MG TABLET PO ONE (08:00)
[2022-09-20 08:15] LABS: BASOPHILS % (AUTO) 0.8 % (0.0-2.0); EOSINOPHILS % (AUTO) 1.4 % (1.0-6.0); HEMATOCRIT 41.5 % (36-46); LYMPHOCYTES # (AUTO) 1.4 K/uL (1.0-4.8); LYMPHOCYTES % (AUTO) 19.3 % (22.0-44.0); MEAN CORPUSCULAR HEMOGLOBIN 30.2 pg (26.0-34.0); MEAN CORPUSCULAR HGB CONC 33.7 G/dL (31.0-37.0); MEAN CORPUSCULAR VOLUME 90 fL (80-100); MONOCYTES # (AUTO) 0.4 K/uL (0.1-1.0); MONOCYTES % (AUTO) 5.2 % (2.0-9.0); NEUTROPHILS # (AUTO) 5.4 K/uL (1.8-7.7); NEUTROPHILS % (AUTO) 73.3 % (40.0-70.0); PLATELET COUNT (AUTO) 236 K/uL (150-450); RED BLOOD CELL COUNT(AUTO) 4.62 MIL/uL (4.00-5.20); RED CELL DISTRIBUTION WIDTH 14.3 % (11.5-14.5)
[2022-09-20] MEDS ORDERED: SODIUM CHLORIDE 0.9% 100 ML ONE (08:26)
[2022-09-20] MEDS ORDERED: IOHEXOL 300 MG/ML 100 ML VIAL ONE (08:26)
[2022-09-20 08:27] LABS: CALCIUM, TOTAL 8.9 mg/dL (8.8-10.5); CREATININE 0.93 mg/dL (0.60-1.30); POTASSIUM 3.6 mmol/L (3.5-5.1)
[2022-09-20] MEDS ORDERED: ONDANSETRON HCL 4 MG/2 ML VIAL IVP ONE (08:30)
[2022-09-20 08:33] LABS: ALBUMIN 3.6 g/dL (3.4-5.0); BILIRUBIN,TOTAL 0.4 mg/dL (0.1-1.0); TOTAL PROTEIN, SERUM 6.9 g/dL (6.4-8.2)
[2022-09-20 10:21] LABS: APPEARANCE,URINE CLEAR (CLEAR); BILIRUBIN,URINE NEGATIVE (NEGATIVE); GLUCOSE, URINE (UA) NEGATIVE (NEGATIVE); KETONES,URINE NEGATIVE (NEGATIVE); LEUKOCYTE ESTERASE ,URINE NEGATIVE (NEGATIVE); NITRATE,URINE NEGATIVE (NEGATIVE); OCCULT BLOOD,URINE NEGATIVE (NEGATIVE); PH,URINE 7.5 (5.0-8.0); PROTEIN,URINE NEGATIVE (NEGATIVE); SPECIFIC GRAVITIY, URINE 1.019 (1.003-1.030); UROBILINOGEN,URINE <=1.0 mg/dL (<=1.0)
[2022-09-20] MEDS ORDERED: SODIUM PHOS/SODIUM BIPHOS 133 ML ENEMA PR ONE (11:15)
[2022-09-20 11:33] VITALS: BP 157/88
[2022-09-20] MEDS ORDERED: DOCU-385 PO (11:33)
[2022-09-20] MEDS ORDERED: DOCUSATE SODIUM 100 MG CAPSULE PO ONE (11:45)
== END 2022-09-20 12:01 | disposition home or self-care (01) ==
LOC: EMS 07:46
DX: K59.00 Constipation, unspecified (principal); E03.9 Hypothyroidism, unspecified; F31.9 Bipolar disorder, unspecified; I10 Essential (primary) hypertension; Z88.2 Allergy status to sulfonamides
CPT/HCPCS: 99285; 74177; 96374; 80053; 81003; 83690; 85025; 36415; J2405; J7050; Q9967

== ENCOUNTER 2022-09-23 09:40 | Emergency (ER) | payer MEDICARE, MEDICAID ==
[~2022-09-23] VITALS: Ht 149.9 cm; Wt 61.4 kg
[~2022-09-23 09:40] MED LIST changes: +DOCU-385 PO
[2022-09-23] MEDS ORDERED: SODIUM PHOS/SODIUM BIPHOS 133 ML ENEMA PR ONE (10:15)
[2022-09-23 11:07] VITALS: BP 159/91
[2022-09-23] MEDS ORDERED: POLY17PO PO (11:21)
[2022-09-23] MEDS ORDERED: NA P133E8 PR (11:21)
== END 2022-09-23 11:32 | disposition home or self-care (01) ==
LOC: EMS 09:44
DX: K59.00 Constipation, unspecified (principal); F31.9 Bipolar disorder, unspecified; I11.9 Hypertensive heart disease without heart failure; Z90.89 Acquired absence of other organs; Z88.2 Allergy status to sulfonamides; Z88.8 Allergy status to other drugs, medicaments and biological substances
CPT/HCPCS: 99284; Z7502; Z7610

== ENCOUNTER 2023-03-08 22:29 | Emergency (ER) | payer MEDICARE, MEDICAID ==
[~2023-03-08] VITALS: Ht 167.6 cm; Wt 75.0 kg
[~2023-03-08 22:29] MED LIST changes: +ALBU18HF12 IH; -ALBU8HFA IH; +NA P133E8 PR; +POLY17PO PO
[2023-03-08 23:31] LABS: BASOPHILS % (AUTO) 0.3 % (0.0-2.0); EOSINOPHILS % (AUTO) 1.6 % (1.0-6.0); HEMATOCRIT 42.2 % (36-46); HEMOGLOBIN 14.2 g/dL (12.0-16.0); LYMPHOCYTES # (AUTO) 2.2 K/uL (1.0-4.8); LYMPHOCYTES % (AUTO) 20.7 % (22.0-44.0); MEAN CORPUSCULAR HEMOGLOBIN 29.9 pg (26.0-34.0); MEAN CORPUSCULAR HGB CONC 33.7 G/dL (31.0-37.0); MEAN CORPUSCULAR VOLUME 89 fL (80-100); MONOCYTES # (AUTO) 0.7 K/uL (0.1-1.0); MONOCYTES % (AUTO) 6.8 % (2.0-9.0); NEUTROPHILS # (AUTO) 7.5 K/uL (1.8-7.7); NEUTROPHILS % (AUTO) 70.6 % (40.0-70.0); PLATELET COUNT (AUTO) 283 K/uL (150-450); RED BLOOD CELL COUNT(AUTO) 4.75 MIL/uL (4.00-5.20); RED CELL DISTRIBUTION WIDTH 13.4 % (11.5-14.5)
[2023-03-08 23:40] LABS: ANION GAP 5 mmol/L (8-16); CARBON DIOXIDE 31 mmol/L (22-29); CHLORIDE 101 mmol/L (98-107); CREATININE 0.86 mg/dL (0.60-1.30); GLOMERULAR FILTR. RATE CALC > 60 mL/min (>60); GLUCOSE,RANDOM 115 mg/dL (70-110); POTASSIUM 3.3 mmol/L (3.5-5.1); SODIUM SERUM 137 mmol/L (136-145)
[2023-03-08] MEDS ORDERED: FAMOTIDINE 40 MG in SODIUM CHLORIDE 0.9% 100 ML IV ONE (23:45)
[2023-03-08] MEDS ORDERED: SODIUM CHLORIDE 0.9% 1,000 ML IV ONE (23:45)
[2023-03-08 23:46] LABS: ALANINE AMINOTRANSFERASE 18 U/L (12-78); ALBUMIN 3.8 g/dL (3.4-5.0); ALKALINE PHOSPHATASE 53 U/L (46-116); ASPARTATE AMINOTRANSFERASE 17 U/L (15-37); BILIRUBIN,TOTAL 0.3 mg/dL (0.1-1.0); LIPASE 73 U/L (73-393); TOTAL PROTEIN, SERUM 7.3 g/dL (6.4-8.2)
[2023-03-09 02:40] LABS: APPEARANCE,URINE CLEAR (CLEAR); BILIRUBIN,URINE NEGATIVE (NEGATIVE); GLUCOSE, URINE (UA) NEGATIVE (NEGATIVE); KETONES,URINE NEGATIVE (NEGATIVE); LEUKOCYTE ESTERASE ,URINE TRACE (NEGATIVE); NITRATE,URINE NEGATIVE (NEGATIVE); OCCULT BLOOD,URINE NEGATIVE (NEGATIVE); PH,URINE 7.5 (5.0-8.0); PROTEIN,URINE NEGATIVE (NEGATIVE); SPECIFIC GRAVITIY, URINE 1.005 (1.003-1.030); UROBILINOGEN,URINE <=1.0 mg/dL (<=1.0)
[2023-03-09] MEDS ORDERED: POLY17PO PO (02:49)
[2023-03-09 02:56] LABS: BACTERIA,URINE None Seen /HPF (None Seen); RBC,URINE None Seen /HPF (0-2); SQUAMOUS EPITHELIAL CELL,UR Few /LPF (None Seen); WBC,URINE 0-2 /HPF (0-5)
[2023-03-09 03:13] VITALS: BP 132/70; PULSE 71; RESP 19; TEMP 97.3
[2023-03-27] MEDS ORDERED: PANT40TA54 PO (11:26)
[2023-03-27] MEDS ORDERED: TRAZ150T80 PO (11:26)
[2023-03-27] MEDS ORDERED: BACL10TA PO (11:26)
[2023-03-27] MEDS ORDERED: AMLO10TA55 PO (11:26)
[2023-03-27] MEDS ORDERED: FAMO20 PO (11:26)
[2023-03-27] MEDS ORDERED: METO-416 PO (11:26)
[2023-03-29] MEDS ORDERED: LEVO150 PO (09:18)
[2023-03-29] MEDS ORDERED: OXYM15SP57 NASAL (09:18)
[2023-03-29] MEDS ORDERED: DOCU-385 PO (15:37)
[2023-03-29] MEDS ORDERED: MEGE40TA33 PO (15:37)
== END 2023-03-09 03:13 | disposition home or self-care (01) ==
LOC: EMS 22:29
DX: R10.13 Epigastric pain (principal); K29.70 Gastritis, unspecified, without bleeding; K59.00 Constipation, unspecified; F31.9 Bipolar disorder, unspecified; J44.9 Chronic obstructive pulmonary disease, unspecified; E78.00 Pure hypercholesterolemia, unspecified; E03.9 Hypothyroidism, unspecified; I11.9 Hypertensive heart disease without heart failure; F17.210 Nicotine dependence, cigarettes, uncomplicated; F12.90 Cannabis use, unspecified, uncomplicated; Z98.890 Other specified postprocedural states; Z88.2 Allergy status to sulfonamides; Z88.8 Allergy status to other drugs, medicaments and biological substances
CPT/HCPCS: 99285; 80053; 81001; 83690; 84484; 85025; 36415; 74022; 93005; 96365; 76705; J3490; J7050

== ENCOUNTER 2023-03-09 16:30 | Emergency (ER) | payer MEDICARE, MEDICAID ==
[~2023-03-09] VITALS: Ht 152.4 cm; Wt 45.0 kg
[2023-03-09 20:24] VITALS: BP 133/83
== END 2023-03-09 20:48 | disposition home or self-care (01) ==
LOC: EMS 16:31
DX: K59.00 Constipation, unspecified (principal); F31.9 Bipolar disorder, unspecified; J44.9 Chronic obstructive pulmonary disease, unspecified; E78.00 Pure hypercholesterolemia, unspecified; I10 Essential (primary) hypertension; E03.9 Hypothyroidism, unspecified; F17.210 Nicotine dependence, cigarettes, uncomplicated; F12.90 Cannabis use, unspecified, uncomplicated; Z98.890 Other specified postprocedural states; Z88.2 Allergy status to sulfonamides; Z88.8 Allergy status to other drugs, medicaments and biological substances
CPT/HCPCS: 74176; 99284; Z7502

== ENCOUNTER 2023-11-30 14:02 | Emergency (ER) | payer MEDICARE, MEDICAID ==
[~2023-11-30] VITALS: Ht 149.9 cm; Wt 56.8 kg
[~2023-11-30 14:02] MED LIST changes: -ALBU18HF12 IH; +AMLO10TA55 PO; -FAMO20 PO; -LEVO125T95 PO; +LEVO150 PO; -LOSA-382 PO; -MAG30ORA11 PO; +MEGE40TA33 PO; -NA P133E8 PR; +OXYM15SP57 NASAL; +PANT40TA54 PO; +TRAZ150T80 PO
[2023-11-30 14:40] VITALS: TEMP 98.4
[2023-11-30] MEDS ORDERED: SODIUM CHLORIDE 0.9% 1,000 ML IV ONE (16:15)
[2023-11-30] MEDS ORDERED: OLAN5TAB77 PO (16:16)
[2023-11-30] MEDS ORDERED: LEVO50TA11 PO (16:16)
[2023-11-30] MEDS ORDERED: MIRT-92 PO (16:16)
[2023-11-30] MEDS ORDERED: BENZ1TAB84 PO (16:16)
[2023-11-30] MEDS ORDERED: BUSP30TA2 PO (16:16)
[2023-11-30 16:34] LABS: BASOPHILS % (AUTO) 0.9 % (0.0-2.0); EOSINOPHILS % (AUTO) 0.8 % (1.0-6.0); HEMATOCRIT 44.8 % (36-46); HEMOGLOBIN 15.2 g/dL (12.0-16.0); LYMPHOCYTES # (AUTO) 2.3 K/uL (1.0-4.8); MEAN CORPUSCULAR HEMOGLOBIN 30.9 pg (26.0-34.0); MEAN CORPUSCULAR HGB CONC 33.8 G/dL (31.0-37.0); MEAN CORPUSCULAR VOLUME 91 fL (80-100); MONOCYTES # (AUTO) 0.6 K/uL (0.1-1.0); MONOCYTES % (AUTO) 6.7 % (2.0-9.0); NEUTROPHILS # (AUTO) 5.3 K/uL (1.8-7.7); NEUTROPHILS % (AUTO) 63.6 % (40.0-70.0); PLATELET COUNT (AUTO) 245 K/uL (150-450); RED CELL DISTRIBUTION WIDTH 14.9 % (11.5-14.5); WHITE BLOOD COUNT (AUTO) 8.3 K/uL (4.5-11.0)
[2023-11-30 16:45] LABS: ANION GAP 7 mmol/L (8-16); CALCIUM, TOTAL 9.3 mg/dL (8.8-10.5); CARBON DIOXIDE 31 mmol/L (22-29); CHLORIDE 98 mmol/L (98-107); CREATININE 0.95 mg/dL (0.60-1.30); GLOMERULAR FILTR. RATE CALC 58 mL/min (>60); GLUCOSE,RANDOM 97 mg/dL (70-110); POTASSIUM 3.9 mmol/L (3.5-5.1); SODIUM SERUM 136 mmol/L (136-145); UREA NITROGEN, BLOOD 10 mg/dL (7-18)
[2023-11-30 16:53] LABS: TROPONIN I-HIGH SENSITIVITY 9 ng/L (<51)
[2023-11-30 16:56] LABS: LACTIC ACID 0.7 mmol/L (0.4-2.0)
[2023-11-30 17:00] LABS: B-TYPE NATRIURETIC PEPTIDE 11 pg/mL (0-100)
[2023-11-30 17:24] LABS: ALANINE AMINOTRANSFERASE 40 U/L (12-78); ALBUMIN 4.2 g/dL (3.4-5.0); ALKALINE PHOSPHATASE 59 U/L (46-116); ASPARTATE AMINOTRANSFERASE 28 U/L (15-37); BILIRUBIN,TOTAL 0.3 mg/dL (0.1-1.0); CREATINE KINASE, TOTAL ONLY 112 U/L (26-192)
[2023-11-30 18:18] LABS: APPEARANCE,URINE CLEAR (CLEAR); BILIRUBIN,URINE NEGATIVE (NEGATIVE); COLOR,URINE COLORLESS (YELLOW); GLUCOSE, URINE (UA) NEGATIVE (NEGATIVE); KETONES,URINE NEGATIVE (NEGATIVE); LEUKOCYTE ESTERASE ,URINE NEGATIVE (NEGATIVE); NITRATE,URINE NEGATIVE (NEGATIVE); OCCULT BLOOD,URINE NEGATIVE (NEGATIVE); PROTEIN,URINE NEGATIVE (NEGATIVE); SPECIFIC GRAVITIY, URINE 1.006 (1.003-1.030); UROBILINOGEN,URINE <=1.0 mg/dL (<=1.0)
[2023-11-30 19:25] VITALS: BP 121/68; PULSE 74; RESP 18
== END 2023-11-30 19:42 | disposition home or self-care (01) ==
LOC: EMS 14:03
DX: F41.9 Anxiety disorder, unspecified (principal); K59.00 Constipation, unspecified; J44.9 Chronic obstructive pulmonary disease, unspecified; F31.9 Bipolar disorder, unspecified; E78.00 Pure hypercholesterolemia, unspecified; E03.9 Hypothyroidism, unspecified; I11.9 Hypertensive heart disease without heart failure; F17.210 Nicotine dependence, cigarettes, uncomplicated; F12.90 Cannabis use, unspecified, uncomplicated; Z98.890 Other specified postprocedural states; Z88.2 Allergy status to sulfonamides; Z88.8 Allergy status to other drugs, medicaments and biological substances
CPT/HCPCS: 99285; 96360; 70450; 80053; 81003; 82550; 83605; 83880; 84484; 85025; 36415; 74022; 93005; J7030

== ENCOUNTER 2023-12-29 11:24 | Emergency (ER) | payer MEDICARE, MEDICAID ==
[~2023-12-29] VITALS: Ht 165.1 cm; Wt 50.0 kg
[~2023-12-29 11:24] MED LIST changes: +BENZ1TAB84 PO; +BUSP30TA2 PO; -LEVO150 PO; +LEVO50TA11 PO; -MEGE40TA33 PO; +MIRT-92 PO; +OLAN5TAB77 PO; -OXYM15SP57 NASAL; -POLY17PO PO
[2023-12-29 11:31] VITALS: TEMP 98.2
[2023-12-29 11:57] LABS: COVID AG,FIA SOURCE NASAL SWAB
[2023-12-29 12:08] LABS: INFLUENZA TYPE A NEGATIVE FOR TYPE A (NEGATIVE); INFLUENZA TYPE B NEGATIVE FOR TYPE B (NEGATIVE); SARS-COV2 (COVID) ANTIGEN,FIA Negative (Negative)
[2023-12-29] MEDS ORDERED: TRAZ-257 PO (13:18)
[2023-12-29 13:21] VITALS: BP 109/70; PULSE 74; RESP 16
[2023-12-29] MEDS ORDERED: CEPH-558 PO (13:32)
[2023-12-29] MEDS: AMOXICILLIN TRIHYDRATE 250 MG CAPSULE PO ONE (13:32)
[2023-12-29] MEDS: OXYMETAZOLINE HCL 0.05% 15 ML NASAL SPRAY NASAL ONE (13:32)
== END 2023-12-29 15:28 | disposition home or self-care (01) ==
LOC: EMS 12:52
DX: J32.9 Chronic sinusitis, unspecified (principal); E78.00 Pure hypercholesterolemia, unspecified; I10 Essential (primary) hypertension; F31.9 Bipolar disorder, unspecified; J44.9 Chronic obstructive pulmonary disease, unspecified; F17.210 Nicotine dependence, cigarettes, uncomplicated; F12.90 Cannabis use, unspecified, uncomplicated; Z88.2 Allergy status to sulfonamides; Z20.822 Contact with and (suspected) exposure to COVID-19
CPT/HCPCS: 87804; 99283